=== PATIENT | male | born 1980 | race Two or more races ===

== ENCOUNTER 2020-06-29 15:00 | Emergency (ER) | payer OTHER ==
[2020-06-29] MEDS ORDERED: Sodium Chloride 0.9% 500 ML IRR SCH ×2 (15:10→15:45)
[2020-06-29] MEDS ORDERED: Tetracaine HCl/PF 0.5% 4 ML Bottle EYELF ONE (15:10)
[2020-06-29] MEDS ORDERED: HYDROmorphone 1 MG/ML Syringe IVPUSH ONE (15:15)
[2020-06-29] MEDS ORDERED: Sodium Chloride 0.9% 500 ML ONE (15:20)
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
[2020-06-29 15:44] VITALS: BP 159/77; PULSE 68
[2020-06-29] MEDS ORDERED: Bacitracin Oint 30 GM Tube TOP STA (16:10)
[2020-06-29] MEDS ORDERED: Acetaminophen/HYDROcodone 325-5 MG Tab PO ONE (16:47)
== END 2020-06-29 17:05 | disposition home or self-care (01) ==
LOC: KA.ED 15:00
DX: T60.3X1A Toxic effect of herbicides and fungicides, accidental (unintentional), initial encounter (principal); T22.632A Corrosion of second degree of left upper arm, initial encounter; Z79.899 Other long term (current) drug therapy; Y92.89 Other specified places as the place of occurrence of the external cause; Y99.0 Civilian activity done for income or pay
CPT/HCPCS: 16020; 96374; 99283; A9270; J1170; J7040

== ENCOUNTER 2021-01-04 09:11 | Day surgery (SDC) | payer OTHER ==
[~2021-01-04 09:11] MED LIST: Lactated Ringers 1,000 ML IV SCH; Sodium Chloride 0.9% 10 ML Syringe FLUSH PRN
[2021-01-04] MEDS ORDERED: Propofol 200 MG/20 ML SDV ONE (10:51)
[2021-01-04] MEDS ORDERED: Midazolam 1 MG/ML 2 ML SDV ONE (10:51)
--- NOTE | 2021-01-04 11:24 | PCM.OPNOTE ---
- General Post-Op/Procedure Note Date of Surgery/Procedure: 01/04/21 Operative Procedure(s): Patient had a colonoscopy and IRC procedure for an internal hemorrhoid at the 3 o'clock position. Pre Op Diagnosis: Patient has been problems with his hemorrhoids, rectal pain and there is a strong family history of colon/rectal cancer. Post-Op Diagnosis: Normal colonoscopy and internal hemorrhoids found at 3:00 and 7:00 positions. O'clock position hemorrhoid was coagulated with the infrared documentation improvement specialist. Anesthesia Technique: MAC Primary Surgeon: Ivan Bird Complications: None Condition: Good Free Text/Narrative:: INFORMED CONSENT: Patient is here today for elective colonoscopy. All aspects of this procedure have been discussed with the patient. All possible complications also, including possibility of perforation, infection, pain, bleeding and unknown complications. In the event of perforation patient may need to have abdominal exploration, colon resection, colostomy and even was discussed. Anesthetic complications were handled by anesthesia department. The patient understands fully well. Patient did not have any further questions for me at the end of my interview. The patient wishes for me to proceed. PREOPERATIVE DIAGNOSIS/INDICATIONS: [~Bleeding, pain, strong family history of rectal/colon carcinoma] POSTOPERATIVE DIAGNOSIS: [Normal colonoscopy, internal hemorrhoids at the 3:00 and 7:00 positions.] INSTRUMENT USED: Olympus videocolonoscope. ASA CLASSIFICATION: [A] ANESTHESIA: Continuous EKG, oximetry and intermittent blood pressure and respiratory monitoring were performed throughout the procedure. IV Versed and Fentanyl were administered. PROCEDURE PERFORMED: Colonoscopy POSITIONS OF PATIENT: Left lateral. RECTUM: Moderately enlarged internal hemorrhoids were noted at the 3:00 and 7:00 positions. Infrared coagulation was performed of the hemorrhoid at the 3 o'clock position. SIGMOID COLON: Normal. DESCENDING COLON: Normal. SPLENIC FLEXURE: Normal. TRANSVERSE COLON: Normal. HEPATIC FLEXURE: Normal. ASCENDING COLON: Normal. CECUM: Normal. ILEOCECAL VALVE: Normal. BIOPSY: None. TOLERANCE: Excellent. COMPLICATIONS: None.
[2021-01-04 12:45] VITALS: BP 110/75; PULSE 70
== END 2021-01-04 12:20 | disposition home or self-care (01) ==
LOC: KA.SDS 09:11
PROVIDERS: ATTEND Family Medicine
DX: K64.8 Other hemorrhoids (principal); Z80.0 Family history of malignant neoplasm of digestive organs; Z79.899 Other long term (current) drug therapy
CPT/HCPCS: 00811; J2250; J2704; J7120

== ENCOUNTER 2021-10-06 08:23 | Day surgery (SDC) | payer OTHER ==
[2021-10-06] MEDS ORDERED: Propofol 200 MG/20 ML SDV IV ONE (08:24)
[2021-10-06] MEDS ORDERED: Ketamine 200 MG/20 ML MDV IV ONE (08:24)
[2021-10-06] MEDS ORDERED: Sodium Chloride 0.9% 10 ML Syringe FLUSH PRN (08:30)
[2021-10-06] MEDS ORDERED: Lactated Ringers 1,000 ML IV SCH (08:30)
[2021-10-06] MEDS ORDERED: Bupivacaine 0.5%/EPINEPHrine 1:200,000 30 ML SDV ONE (09:39)
[2021-10-06] MEDS ORDERED: Bupivacaine 0.5%/EPINEPHrine 1:200,000 30 ML SDV INFILT ONE (09:43)
[2021-10-06] MEDS ORDERED: Ketamine 200 MG/20 ML MDV ONE (09:45)
[2021-10-06] MEDS ORDERED: Midazolam 1 MG/ML 2 ML SDV ONE (09:45)
[2021-10-06] MEDS ORDERED: Propofol 200 MG/20 ML SDV ONE ×2 (09:45→10:09)
--- NOTE | 2021-10-06 10:42 | PCM.OPNOTE ---
- General Post-Op/Procedure Note Date of Surgery/Procedure: 10/06/21 Operative Procedure(s): External hemorrhoidectomy x2, infrared coagulation of internal hemorrhoids. Findings: Large external hemorrhoids x2, internal hemorrhoids. Pre Op Diagnosis: Large external hemorrhoids x2, internal hemorrhoids. Post-Op Diagnosis: As above. Anesthesia Technique: Moderate Sedation Other Anesthesia Type: General Primary Surgeon: Ivan Bird Complications: None Condition: Good Free Text/Narrative:: Reoperative diagnosis: Large external hemorrhoids x2 causing discomfort and pain and bleeding, internal hemorrhoids. Operative diagnosis: As above. Procedure performed: External hemorrhoidectomy x2, infrared coagulation of internal hemorrhoids. Informed consent is obtained for the patient regarding his procedures. All possible complications were thoroughly discussed. Patient understands wishes to proceed. The patient was taken to the operating room and given a satisfactory general anesthesia. He was kept in the lithotomy position. Thorough prep was performed. 2 large external hemorrhoids were identified. Xylocaine 1% with epinephrine was used to infiltrate this area. We then made radial incisions on each of these 2 hemorrhoids and gently dissected the external hemorrhoids completely and performed external hemorrhoidectomies at these 2 sites. We then sutured the mucocutaneous junction with 4-0 Polysorb sutures. Good hemostasis was obtained. Next we inserted a lubricated anoscope into the anorectal canal. We noticed internal hemorrhoids at the 3 o'clock position. We coagulated this area with the infrared environmental services attendant. The speculum was removed. The wounds were inspected. No active bleeding was encountered. 4 x 4's were placed. The patient tolerated the procedures well. There were no complications. He was transferred to the recovery room in excellent condition. Follow-up in the clinic in 10 days.
[2021-10-06 12:40] VITALS: BP 136/92; PULSE 64
== END 2021-10-06 11:55 | disposition home or self-care (01) ==
LOC: KA.SDS 08:23
PROVIDERS: ATTEND Family Medicine
DX: K64.8 Other hemorrhoids (principal); K64.4 Residual hemorrhoidal skin tags; Z79.899 Other long term (current) drug therapy; Z98.890 Other specified postprocedural states
CPT/HCPCS: 46250; 46930; J2250; J2704; J3490; J7120; 00902